=== PATIENT | male | born 1935 | race Caucasian/White ===

== ENCOUNTER 2019-10-21 11:43 | Observation (INO) ==
[2019-10-21] MEDS ORDERED: NS 0.9% 1000 ml BAG 1,000 ML IV ONE (12:03)
[2019-10-21 13:15] LABS: ABS Lymphocytes 0.5 10^3/ul (1.0-4.8); ABS Monocytes 1.5 10^3/ul (0-0.8); Eosinophil % 0.1 %; Hematocrit 41 % (42-52); Mean Corpuscular HGB Conc 34 g/dL (31-36); Mean Corpuscular Hemoglobin 29 pg (27-31); Mean Corpuscular Volume 84 fL (80-94); Mean Platelet Volume 9.1 fL (7.4-10.4); Platelet Count 229 10^3/uL (150-450); Red Cell Distribution Width 15 % (10-15); White Blood Count 15.3 10^3/uL (3.5-10.8)
[2019-10-21 13:36] LABS: Troponin I 0.03 ng/mL (<0.03)
[2019-10-21 13:37] LABS: ALT 154 U/L (7-52); AST 69 U/L (13-39); Albumin 3.3 g/dL (3.2-5.2); Albumin/Globulin Ratio 0.9 (1-3); Alkaline Phosphatase 352 U/L (34-104); Anion Gap 8 mmol/L (2-11); BUN/Creatinine Ratio 20.8 (8-20); Blood Urea Nitrogen 21 mg/dL (6-24); CO2 Carbon Dioxide 25 mmol/L (22-32); Chloride 104 mmol/L (101-111); EGFR African American 85.6 (>60); EGFR Non-African American 70.7 (>60); Globulin 3.6 g/dL (2-4); Glucose 108 mg/dL (70-100); Magnesium 1.6 mg/dL (1.9-2.7); Potassium 3.9 mmol/L (3.5-5.0); Sodium 137 mmol/L (135-145); Total Protein 6.9 g/dL (6.4-8.9)
[2019-10-21] MEDS ORDERED: Magnesium Sulfate IV 1GM/100ML 1 GM/100 ML BAG IV ONE (13:48)
[2019-10-21 14:02] LABS: Urine Appearance Cloudy; Urine Bilirubin Negative (Negative); Urine Blood 2+ (Negative); Urine Color Yellow; Urine Glucose Negative (Negative); Urine Ketones Negative (Negative); Urine Nitrite Negative (Negative); Urine Protein Negative (Negative); Urine Specific Gravity 1.019 (1.010-1.030); Urine Urobilinogen Negative (Negative)
[2019-10-21 14:08] LABS: Urine Bacteria Absent (Absent); Urine Red Blood Cell 3+(>10/hpf) (Absent); Urine White Blood Cell Trace(0-5/hpf) (Absent)
[2019-10-21 14:29] LABS: TSH (Thyroid Stimulating Horm) 1.45 mcIU/mL (0.34-5.60)
[2019-10-21 16:39] LABS: Troponin I 0.03 ng/mL (<0.03)
[2019-10-21 18:15] LABS: INR 1.2 (0.82-1.09)
[2019-10-21 18:22] LABS: C Reactive Protein 67.58 mg/L (<8.01)
[2019-10-21 18:26] LABS: LDH 183 U/L (140-271)
[2019-10-21] MEDS ORDERED: Ondansetron 4 mg VIAL 2 MG/ML 2 ml VIAL IV PRN (19:17)
[2019-10-21 21:42] LABS: Hepatitis B Surface Antigen Nonreactive (Nonreactive)
[2019-10-21 21:59] LABS: Hepatitis C Antibody Negative (Negative)
[2019-10-21] MEDS: Enoxaparin 40 MG/0.4 ML SYR(*) SUBCUT SCH (22:30)
[2019-10-22 06:44] LABS: ABS Eosinophils 0.1 10^3/ul (0-0.6); ABS Lymphocytes 0.8 10^3/ul (1.0-4.8); ABS Monocytes 1.2 10^3/ul (0-0.8); Eosinophil % 0.8 %; Hematocrit 38 % (42-52); Hemoglobin 12.9 g/dL (14.0-18.0); Lymphocyte % 8.6 %; Mean Corpuscular HGB Conc 34 g/dL (31-36); Mean Corpuscular Hemoglobin 28 pg (27-31); Mean Corpuscular Volume 83 fL (80-94); Mean Platelet Volume 8.8 fL (7.4-10.4); Nucleated Red Blood Cells % 0.1; Platelet Count 202 10^3/uL (150-450); Red Blood Count 4.55 10^6 /uL (4.18-5.48); Red Cell Distribution Width 15 % (10-15); White Blood Count 9.3 10^3/uL (3.5-10.8)
[2019-10-22 06:56] LABS: Calcium 8.2 mg/dL (8.6-10.3); EGFR African American 86.6 (>60); EGFR Non-African American 71.5 (>60)
[2019-10-22] MEDS: Aspirin EC 81 mg TAB.EC (enteric coated) PO SCH (09:26)
[2019-10-22 12:16] LABS: Albumin/Globulin Ratio 0.9 (1-3); Globulin 3.3 g/dL (2-4); Indirect Bilirubin 0.6 mg/dL (0.3-1.0); Total Bilirubin 0.7 mg/dL (0.2-1.0); Total Protein 6.3 g/dL (6.4-8.9)
[2019-10-22] MEDS: Carbidopa/Levodop 25/100 MG TAB PO SCH ×2 (13:53→20:48)
[2019-10-22] MEDS: Enoxaparin 40 MG/0.4 ML SYR(*) SUBCUT SCH (20:49)
[2019-10-23] MEDS: Aspirin EC 81 mg TAB.EC (enteric coated) PO SCH (08:59)
[2019-10-23] MEDS: Carbidopa/Levodop 25/100 MG TAB PO SCH ×2 (09:00→13:34)
[2019-10-23 16:00] VITALS: BP 151/69
== END 2019-10-23 17:05 | disposition home or self-care (01) ==
LOC: ED 11:43 → MEDTELE 11:43
PROVIDERS: ADMIT Nurse Practitioner Adult Health; ATTEND Internal Medicine